=== PATIENT | male | born 1985 | race Two or more races ===

== ENCOUNTER 2020-07-31 09:20 | Emergency (ER) | payer BC ==
[~2020-07-31] VITALS: Ht 167.6 cm; Wt 68.0 kg
[2020-07-31 09:34] VITALS: BP 99/60
--- NOTE | 2020-07-31 10:43 | NUR ---
pt in xray at this time.
--- NOTE | 2020-07-31 10:55 | NUR ---
pt back to room from xray at this time.
--- NOTE | 2020-07-31 11:28 | NUR ---
Patient given discharge instructions and they have confirmed that they understand the instructions. Patient ambulatory with steady gait.
== END 2020-07-31 11:29 | disposition home or self-care (01) ==
LOC: ED 10:05
DX: S20.212A Contusion of left front wall of thorax, initial encounter (principal); X58.XXXA Exposure to other specified factors, initial encounter; Y93.89 Activity, other specified; Y92.89 Other specified places as the place of occurrence of the external cause; Y99.8 Other external cause status
CPT/HCPCS: 99283